=== PATIENT | male | born 1955 | race Caucasian/White ===

== ENCOUNTER 2022-01-02 16:56 | Observation (INO) | payer OTHER ==
[2022-01-02] MEDS ORDERED: MAG HYDROX/AL HYDROX/SIMETH 30 ML UNIT-DOSE CUP PO ONE (18:36)
[2022-01-02] MEDS ORDERED: FAMOTIDINE 20 MG/50 ML IVPB 20 MG/50 ML MG IVPB ONE ×2 (18:36→19:06)
[2022-01-02] MEDS ORDERED: SODIUM CHLORIDE 0.9% 500 ML INFUS.BAG IV ONE (18:36)
[2022-01-02] MEDS ORDERED: MAG HYDROX/AL HYDROX/SIMETH 30 ML UNIT-DOSE CUP ONE (19:06)
[2022-01-02 19:49] LABS: BASO % 0.6 % (0-2.0); EOS % 1.3 % (0-4.5); HEMATOCRIT 45.2 % (35.4-49); HEMOGLOBIN 15.9 GM/dL (11.7-16.9); MCH 33.7 pg (25.7-33.7); MCHC 35.2 g/dl (32.0-35.9); MEAN CELL VOLUME 95.6 fl (80-96); MEAN PLT VOLUME 8.7 fl (7.5-11.1); MONO % 8.9 % (3.8-10.2); NEUT % 67.2 % (42.8-82.8); PLATELET COUNT 225 10^3/uL (134-434); RBC 4.73 M/mm3 (4.00-5.60); RDW 12.7 % (11.9-15.9)
[2022-01-02 19:55] LABS: INR 1.07 (0.83-1.09); PROTHROMBIN TIME (PATIENT) 12.3 SEC (9.7-13.0)
[2022-01-02 19:58] LABS: ACTIVATED PTT 31.8 SECONDS (25.2-36.5)
[2022-01-02 20:10] LABS: ALBUMIN 4.5 g/dl (3.4-5.0); CALCIUM 9.4 mg/dL (8.5-10.1)
[2022-01-02 20:11] LABS: BLOOD UREA NITROGEN 12.6 mg/dL (7-18)
[2022-01-02 20:15] LABS: TOT PROT 7.7 g/dl (6.4-8.2)
[2022-01-02] MEDS ORDERED: POLYETHYLENE GLYCOL (HEALTHYLAX) 3350 17 GM PACKET PO PRN (22:12)
[2022-01-02] MEDS ORDERED: ACETAMINOPHEN 325 MG TABLET (FP) PO PRN (22:12)
[2022-01-02] MEDS ORDERED: MAG HYDROX/AL HYDROX/SIMETH 30 ML UNIT-DOSE CUP PO PRN (22:24)
[2022-01-03 06:01] VITALS: BMI 26.9
[2022-01-03] MEDS: ENOXAPARIN NA (PORCINE) 40 MG/0.4 ML DISP.SYRIN SQ SCH (09:21)
[2022-01-03] MEDS: ASPIRIN COATED 81 MG TABLET.EC PO SCH (09:21)
[2022-01-03] MEDS ORDERED: FAMOTIDINE 20 MG TABLET PO SCH (10:00)
[2022-01-03] MEDS: FAMOTIDINE 20 MG TABLET PO SCH (15:32)
[2022-01-03] MEDS ORDERED: MELATONIN 1 MG TABLET PO PRN (20:50)
[2022-01-03] MEDS ORDERED: METOPROLOL TARTRATE 25 MG TABLET (FP) PO SCH (22:00)
[2022-01-03] MEDS ORDERED: ATORVASTATIN CA 10 MG TABLET (FP) PO SCH (22:00)
[2022-01-04] MEDS ORDERED: diphenhydrAMINE HCL 25 MG CAPSULE (FP) PO ONE ×2 (04:12→04:30)
[2022-01-04] MEDS: ASPIRIN COATED 81 MG TABLET.EC PO SCH ×2 (08:42→12:38)
[2022-01-04] MEDS: ENOXAPARIN NA (PORCINE) 40 MG/0.4 ML DISP.SYRIN SQ SCH ×2 (08:42→12:39)
[2022-01-04] MEDS: FAMOTIDINE 20 MG TABLET PO SCH ×2 (08:42→12:45)
[2022-01-04 14:07] VITALS: BP 125/77; PULSE 85; TEMP 98.5
== END 2022-01-04 16:42 | disposition home or self-care (01) ==
LOC: JER 16:56 → JERBED 21:45 → J4W 01-03 05:13
PROVIDERS: ADMIT Hospitalist; ATTEND Family Medicine
PROC: 3E033GC Introduction of Other Therapeutic Substance into Peripheral Vein, Percutaneous Approach (ICD-10-PCS; principal; 2022-01-02)
PROC: 3E0337Z Introduction of Electrolytic and Water Balance Substance into Peripheral Vein, Percutaneous Approach (ICD-10-PCS; 2022-01-02)
DX: I25.10 Atherosclerotic heart disease of native coronary artery without angina pectoris (principal); I11.9 Hypertensive heart disease without heart failure; R10.13 Epigastric pain; Z90.89 Acquired absence of other organs; I25.2 Old myocardial infarction; F41.9 Anxiety disorder, unspecified; I45.10 Unspecified right bundle-branch block; Z88.8 Allergy status to other drugs, medicaments and biological substances; Z95.5 Presence of coronary angioplasty implant and graft; Z87.891 Personal history of nicotine dependence
CPT/HCPCS: 36415; 71045-TC-FY; 74177-TC; 78452-TC; 80053; 83690; 84484; 85025; 85610; 85730; 93005; 93010; 93017; 96365; 99285-25; A9502; C9803-CS; G0378; Q9967; U0003; U0005

== ENCOUNTER 2024-06-21 06:45 | Observation (INO) | payer OTHER ==
[2024-06-21] MEDS ORDERED: ACETAMINOPHEN INJECTION 100 ML ONE (08:04)
[2024-06-21] MEDS: ACETAMINOPHEN 1000 MG/100 ML BAG IVPB ONE (08:18)
[2024-06-21 09:09] LABS: POTASSIUM 4.1 mmol/L (3.5-5.1)
[2024-06-21 09:12] LABS: ALBUMIN 4.4 g/dl (3.4-5.0); BLOOD UREA NITROGEN 11.9 mg/dL (7-18); CALCIUM 9.3 mg/dL (8.5-10.1); MAGNESIUM 1.9 mg/dL (1.8-2.4)
[2024-06-21 09:15] LABS: CREATININE 0.9 mg/dL (0.55-1.3)
[2024-06-21 09:17] LABS: TOT PROT 7.6 g/dl (6.4-8.2)
[2024-06-21 09:59] LABS: BASO % 0.2 % (0-2.0); EOS % 0.4 % (0-4.5); HEMATOCRIT 43.3 % (35.4-49); HEMOGLOBIN 15.6 GM/dL (11.7-16.9); LYMPH % 9.3 % (8-40); MCH 33.8 pg (25.7-33.7); MEAN CELL VOLUME 93.9 fl (80-96); MONO % 6.1 % (3.8-10.2); PLATELET COUNT 224 10^3/uL (134-434); RBC 4.61 M/mm3 (4.00-5.60); RDW 12.6 % (11.9-15.9); WHITE BLOOD COUNT 11.9 K/mm3 (4.0-10.0)
[2024-06-21] MEDS ORDERED: MAG HYDROX/AL HYDROX/SIMETH 30 ML UNIT-DOSE CUP ONE ×2 (10:01→15:30)
[2024-06-21] MEDS ORDERED: FAMOTIDINE 20 MG/50 ML IVPB 20 MG/50 ML MG IVPB ONE (10:01)
[2024-06-21] MEDS: FAMOTIDINE 20 MG/50 ML IVPB 20 MG/50 ML MG IVPB ONE (10:37)
[2024-06-21] MEDS: MAG HYDROX/AL HYDROX/SIMETH 30 ML UNIT-DOSE CUP PO ONE (10:37)
[2024-06-21] MEDS ORDERED: ASPIRIN 81 MG CHEWABLE TABLETS ONE (10:44)
[2024-06-21] MEDS: ASPIRIN 81 MG CHEWABLE TABLETS PO ONE (10:46)
[2024-06-21 13:30] LABS: EPI CELLS 1 /uL (0-25.1); HYALINE CASTS 0 /uL (0-3.1); PH,URINE 5.5 (5.0-8.0); URINE APPEARANCE CLEAR; URINE BACTERIA 0 /uL (0-1359); URINE BILIRUBIN NEGATIVE (NEGATIVE); URINE COLOR YELLOW; URINE GLUCOSE (UA) NEGATIVE (NEGATIVE); URINE KETONE 1+ (NEGATIVE); URINE LEUK ESTERASE NEGATIVE (NEGATIVE); URINE NITRITE NEGATIVE (NEGATIVE); URINE PROTEIN NEGATIVE (NEGATIVE); URINE RBC 18 /uL (0-23.9); URINE UROBILINOGEN 0.2 mg/dL (0.2-1.0); URINE WBC 2 /uL (0-25.8)
[2024-06-21] MEDS ORDERED: POLYETHYLENE GLYCOL (HEALTHYLAX) 3350 17 GM PACKET PO PRN (14:25)
[2024-06-21] MEDS ORDERED: ACETAMINOPHEN 325 MG TABLET (FP) ONE (15:30)
[2024-06-21] MEDS: MAG HYDROX/AL HYDROX/SIMETH 30 ML UNIT-DOSE CUP PO PRN (15:35)
[2024-06-21] MEDS: ACETAMINOPHEN 325 MG TABLET (FP) PO PRN (15:36)
[2024-06-21 20:50] VITALS: BMI 25.3
[2024-06-21] MEDS: MELATONIN 5 MG TABLETS PO ONE (21:38)
[2024-06-21] MEDS: ATORVASTATIN CA 10 MG TABLET (FP) PO SCH (21:39)
[2024-06-21] MEDS: METOPROLOL TARTRATE 25 MG TABLET (FP) PO SCH (21:39)
[2024-06-22 06:55] LABS: BASO % 0.9 % (0-2.0); EOS % 2.8 % (0-4.5); HEMATOCRIT 39.2 % (35.4-49); HEMOGLOBIN 13.8 GM/dL (11.7-16.9); LYMPH % 29.8 % (8-40); MCH 33.5 pg (25.7-33.7); MCHC 35.1 g/dl (32.0-35.9); MEAN CELL VOLUME 95.7 fl (80-96); MEAN PLT VOLUME 8.7 fl (7.5-11.1); MONO % 12.7 % (3.8-10.2); NEUT % 53.8 % (42.8-82.8); PLATELET COUNT 178 10^3/uL (134-434); RDW 12.7 % (11.9-15.9); WHITE BLOOD COUNT 6.8 K/mm3 (4.0-10.0)
[2024-06-22 07:18] LABS: POTASSIUM 3.8 mmol/L (3.5-5.1)
[2024-06-22 07:20] LABS: ALBUMIN 3.6 g/dl (3.4-5.0); BLOOD UREA NITROGEN 10.6 mg/dL (7-18); CALCIUM 8.8 mg/dL (8.5-10.1)
[2024-06-22 07:23] LABS: CREATININE 0.7 mg/dL (0.55-1.3)
[2024-06-22 07:25] LABS: BILIRUBIN,TOTAL 1.3 mg/dL (0.2-1); TOT PROT 6.3 g/dl (6.4-8.2)
[2024-06-22] MEDS ORDERED: REGADENOSON 0.4 MG/5 ML PRE-FILLED SYRINGE IVPUSH ONE (09:22)
[2024-06-22] MEDS: REGADENOSON 0.4 MG/5 ML PRE-FILLED SYRINGE IVPUSH ONE (10:20)
[2024-06-22] MEDS: FAMOTIDINE 20 MG TABLET PO SCH (11:18)
[2024-06-22] MEDS: ASPIRIN COATED 81 MG TABLET.EC PO SCH (11:18)
[2024-06-22 12:36] LABS: HIV INTERPRETATION NEGATIVE (NEGATIVE)
[2024-06-22 18:32] VITALS: BP 104/71; PULSE 62; RESP 19; TEMP 98.3
== END 2024-06-22 18:34 | disposition home or self-care (01) ==
LOC: JER 06:45 → JERBED 10:04 → J4W 20:34
PROVIDERS: ADMIT Family Medicine; ATTEND Family Medicine
PROC: 3E033NZ Introduction of Analgesics, Hypnotics, Sedatives into Peripheral Vein, Percutaneous Approach (ICD-10-PCS; principal; 2024-06-21)
PROC: 3E033GC Introduction of Other Therapeutic Substance into Peripheral Vein, Percutaneous Approach (ICD-10-PCS; 2024-06-21)
DX: I25.10 Atherosclerotic heart disease of native coronary artery without angina pectoris (principal); E78.5 Hyperlipidemia, unspecified; I11.9 Hypertensive heart disease without heart failure; I25.2 Old myocardial infarction; F41.9 Anxiety disorder, unspecified; K57.90 Diverticulosis of intestine, part unspecified, without perforation or abscess without bleeding; Z95.5 Presence of coronary angioplasty implant and graft; Z87.891 Personal history of nicotine dependence; Z90.49 Acquired absence of other specified parts of digestive tract; Z87.738 Personal history of other specified (corrected) congenital malformations of digestive system; Z88.8 Allergy status to other drugs, medicaments and biological substances
CPT/HCPCS: 36415; 71046-TC-FY; 78452-TC; 80053; 81003; 83690; 83735; 84443; 84484; 85025; 86803; 87086; 87389; 93005; 93010; 93017; 93306-TC; 96365; 96375; 99285-25; A9502; G0378; J0131; J2785

== ENCOUNTER 2025-04-11 12:43 | Emergency (ER) | payer OTHER ==
[2025-04-11 12:48] VITALS: BP 126/64; PULSE 68; RESP 18; TEMP 97.9; BMI 23.1
[2025-04-11] MEDS ORDERED: FLUORESCEIN NA 1 EA STRIP ONE (13:08)
[2025-04-11] MEDS: FLUORESCEIN NA 1 EA STRIP OD ONE (13:26)
[2025-04-11 18:02] LABS: HCV DIAGNOSTIC IN-HOUSE W/RFLX NON-REACTIVE (NONREACTIVE)
[2025-04-11 23:15] LABS: HIV INTERPRETATION NEGATIVE (NEGATIVE)
== END 2025-04-11 13:48 | disposition home or self-care (01) ==
LOC: JER 12:43 → JERFT 12:43
DX: R21 Rash and other nonspecific skin eruption (principal); L29.9 Pruritus, unspecified; L53.9 Erythematous condition, unspecified; B35.4 Tinea corporis
CPT/HCPCS: 36415; 86803; 87389; 99283-25